=== PATIENT | male | born 1950 | race Caucasian/White ===

== ENCOUNTER → 2022-09-12 | Outpatient (CLI) | payer MEDICARE, OTHER ==
[~2022-09-12] MED LIST: TIXAGEVIMAB/CILGAVIMAB (EUA) 300 MG/3 ML COMBO.PKG IM NR
[2022-09-12 08:17] VITALS: RESP 16; TEMP 98.2
[2022-09-12 08:53] VITALS: BP 130/77; PULSE 67
== END ==
LOC: PROCWHC3 07:54
PROVIDERS: ATTEND Internal Medicine Hematology & Oncology
DX: Z23 Encounter for immunization (principal)
CPT/HCPCS: Q0220; M0220

== ENCOUNTER → 2022-09-26 | Outpatient (CLI) | payer MEDICARE, OTHER ==
--- NOTE | 2022-09-26 15:37 | PE ---
EXAMINATION TYPE: PET CT fusion skull to thigh DATE OF EXAM: 09/26/2022 COMPARISON: NONE HISTORY: Lymphoma diagnosed on lymph node biopsy 1 month earlier. TECHNIQUE: Following the intravenous administration of 11.8 mCi of F-18 FDG, whole body images are p erformed from the skull base to the midthigh. Images are reviewed on the computer in the coronal, ax ial, and sagittal planes. Reconstructed rotating images are created on independent workstation and r eviewed on the computer. A localization and attenuation correction CT is performed in conjunction w ith the PET scan. Blood glucose level was 91 SCAN: Initial Scan FINDINGS: Mean SUV mediastinum: 1.04 Mean SUV liver: 1.99 SKULL BASE AND NECK: No areas of abnormal hypermetabolic uptake. There are enlarged lymph nodes thro ughout the neck bilaterally extending above the hyoid bone to the super clavicular level with both an terior and posterior involvement noted. CHEST, MEDIASTINUM, AND HILAR REGION: Focal hypermetabolic uptake in the anterior lower pole left thy roid 2.9 cm nodule axial image 76. There are abnormal enlarged lymph nodes throughout the mediastinum that are ametabolic. There are abn ormal enlarged bilateral axillary lymph nodes that are ametabolic. Max SUV right axilla 1.45. Max SUV left axilla 1.36 for reference. ABDOMEN AND PELVIS: Normal excretion. There is hemant mesentery appearance with scattered prominent bu t subcentimeter lymph nodes throughout the central abdomen. There are abnormal enlarged and confluent retroperitoneal lymph nodes extending into the pelvis where there are enlarged bilateral groin lymph nodes and markedly enlarged symmetric appearing external iliac chain lymph nodes causing mass effect on the bladder axial image 234. All levels are fairly ametabolic. Max SUV right groin 1.86. Max SUV 2.46 axial image 263. OSSEOUS STRUCTURES: No areas of abnormal hypermetabolic uptake. OTHER CT: Mild calcified plaque bilateral carotid bulb level. Coronary artery calcification is presen t which is noted marker of underlying coronary artery disease. Splenomegaly is seen measuring 18.4 cm long axis axial image 153. No suspicious focal hypermetabolic lesion. Mildly enlarged prostate consistent with BPH. IMPRESSION: 1. Abnormally enlarged adenopathy from the upper neck through the bilateral groin region extending ab ove and below the diaphragm. No abnormal hypermetabolic lymph nodes seen within Max SUV greater than 2.5. Areas of Deauville score 3 and 4 are present. Splenomegaly is seen without suspicious hypermeta bolic uptake. 2. There is suspicious hypermetabolic 2.9 cm left thyroid nodule worrisome for primary thyroid neopla sm. Follow-up advised.
== END | disposition home or self-care (01) ==
LOC: RADXRMAIN 12:24
PROVIDERS: ATTEND Internal Medicine Hematology & Oncology
DX: C83.08 Small cell B-cell lymphoma, lymph nodes of multiple sites (principal); R16.1 Splenomegaly, not elsewhere classified; R59.0 Localized enlarged lymph nodes
CPT/HCPCS: 78815; A9552

== ENCOUNTER → 2023-01-29 | Outpatient (CLI) | payer MEDICARE, OTHER ==
--- NOTE | 2023-01-30 07:42 | US ---
EXAMINATION TYPE: US thyroid st tissue head/neck DATE OF EXAM: 01/29/2023 COMPARISON: NONE CLINICAL INDICATION: Male, 72 years old with history of E04.1 NONTOXIC SINGLE THYROID NODULE; New refugio gnosis of leukemia, right neck palpable lump GLAND SIZE: Right Lobe: 4.3 x 1.2 x 2.5 cm Overall Parenchyma: heterogenous Left Lobe: 4.3 x 1.4 x 2.4 cm Overall Parenchyma: heterogeneous Isthmus Thickness: 0.6 cm NODULES RIGHT: # of nodules measured on right: 0 LEFT: # of nodules measured on left: 1 1. 1.8 X 1.8 x 1.2 cm, lower , cystic or almost completely cystic, hypoechoic nodule, which is wide r than tall, with smooth margins, without echogenic foci. TR 3 Prior size: [employer] ISTHMUS: # of nodules measured in the isthmus: 0 Bilateral neck scanned, innumerable enlarged lymph nodes bilaterally, large cluster on the right at s ite of palpable. IMPRESSION: 1. Multiple enlarged left neck lymph nodes. 2. Mildly suspicious nodule inferior left lobe thyroid. Follow-up exam in one year is recommended 2017 ACR TI-RADS LEVEL: TR-RADS 3 - Mildly Suspicious: Follow if > 1.5 cm, FNA if > 2.5 cm *Highest TI-RADS level nodule reported
== END | disposition home or self-care (01) ==
LOC: RADUSWWP 16:43
PROVIDERS: ATTEND Internal Medicine Hematology & Oncology
DX: E04.1 Nontoxic single thyroid nodule (principal); R59.0 Localized enlarged lymph nodes
CPT/HCPCS: 76536

== ENCOUNTER → 2023-02-06 | Outpatient (CLI) | payer MEDICARE, OTHER ==
--- NOTE | 2023-02-06 14:45 | CT ---
EXAMINATION TYPE: CT ChestAbdPelvis w con DATE OF EXAM: 02/06/2023 COMPARISON: None HISTORY: HX lymphoma. CT DLP: 1688.40 mGycm Automated exposure control for dose reduction was used. CONTRAST: CT scan of the chest, abdomen and pelvis is performed with Oral Contrast and with IV Contrast, patien t injected with 80 mL of Isovue 300. FINDINGS: CT chest: There are multiple scattered pulmonary nodules the largest of which is 6 mm. The majority air approxi mately 3 to 4 mm in size. There is no airspace consolidation or abnormal interstitial density. There is no pleural effusion, pleural thickening or pneumothorax. There is marked adenopathy involving the axillary lymph nodes and mediastinal lymph nodes and to a le sser extent the right hilar lymph nodes. The largest axillary nodes are approximately 4 cm. Largest mediastinal node is a subcarinal lymph nod e which is 4.2 cm. No focal intraosseous abnormalities are seen. CT abdomen and pelvis: Gallbladder is normal without distention, wall thickening, gallstones or pericholecystic fluid. There is no biliary ductal dilatation. There is mild hepatomegaly and marked splenomegaly. The spleen measures approximately 20 cm. There is marked adenopathy with multiple large lymph nodes in the periportal region, marked lymph nod es in the retroperitoneum and within the mesentery. There is a conglomerate mass of lymph node enlarg ement in the retroperitoneum. The periportal lymph node is 3.5 cm. The kidneys excrete contrast promptly and symmetrically is no solid renal mass or hydronephrosis. The caliber the abdominal aorta is normal. The bowel loops are normal in caliber is no dilatation or obstruction. There is no free intraperitone al air or fluid. There is marked pelvic adenopathy involving both the internal and external inguinal lymph nodes. Ther e is marked enlargement of the internal inguinal lymph nodes bilaterally causing extrinsic mass effec t on the urinary bladder. The largest lymph nodes in this region measure approximately 8 cm. The largest lymph nodes in the groin measured approximate 4.5 cm. No focal osseous abnormalities are seen IMPRESSION: 1. Marked lymphadenopathy within the chest, abdomen and pelvis as described above. 2. Multiple small pulmonary nodules all of which are 6 mm or less as described above. 3. Hepatomegaly and marked splenomegaly.
== END | disposition home or self-care (01) ==
LOC: RADCTMAIN 11:37
PROVIDERS: ATTEND Internal Medicine Hematology & Oncology
DX: C83.08 Small cell B-cell lymphoma, lymph nodes of multiple sites (principal); R16.2 Hepatomegaly with splenomegaly, not elsewhere classified; R91.8 Other nonspecific abnormal finding of lung field; R59.0 Localized enlarged lymph nodes
CPT/HCPCS: 82565; 84520; 71260; 74177; Q9967

== ENCOUNTER → 2024-02-25 | Outpatient (CLI) | payer MEDICARE, OTHER | END | disposition home or self-care (01) | LOC: LABWHC1 11:06 | PROVIDERS: ATTEND Internal Medicine Geriatric Medicine | DX: C83.00 Small cell B-cell lymphoma, unspecified site (principal); E78.2 Mixed hyperlipidemia; N40.0 Benign prostatic hyperplasia without lower urinary tract symptoms; E03.9 Hypothyroidism, unspecified; N18.2 Chronic kidney disease, stage 2 (mild); R73.9 Hyperglycemia, unspecified | CPT/HCPCS: 36415; 83036 ==